=== PATIENT | male | born 1950 | race African-American/Black ===

== ENCOUNTER 2018-05-11 12:57 | Inpatient (IN) | payer OTHER, MEDICARE ==
[~2018-05-11] VITALS: Ht 182.9 cm; Wt 95.3 kg
[2018-05-11 13:51] LABS: HEMATOCRIT 35.7 % (38.0-50.0); HEMOGLOBIN 12.6 G/DL (12.5-16.6); MCH 31.7 PG (29.0-34.0); MCHC 35.3 G/DL (30.0-36.0); MCV 89.7 FL (86-99); PLATELET COUNT 173 K/uL (156-360); RBC DIS.WIDTH-CV 12.5 % (11.8-14.6); RBC DIS.WIDTH-SD 41.3 % (39-53); RED BLOOD COUNT 3.98 M/uL (4.00-5.50); WHITE BLOOD COUNT 9.9 K/uL (4.1-10.2)
[2018-05-11 14:00] LABS: CHLORIDE 101 mEq/L (99-109); POTASSIUM 4.4 mEq/L (3.7-5.4); SODIUM 137 mEq/L (136-147)
[2018-05-11 14:02] LABS: GLUCOSE 169 mg/dL (70-99)
[2018-05-11 14:06] LABS: CREATININE 2.5 mg/dL (0.6-1.3); GFR ESTIMATE (CALCULATED) 33 mL/min/ (58.99-99999); UREA NITROGEN (BUN) 25 mg/dL (9-23)
[2018-05-11 14:12] LABS: TROP-I INTERPRETATION NEGATIVE; TROPONIN-I 0.01 ng/mL (0.0-0.30)
[2018-05-11 14:29] LABS: TROP-I INTERPRETATION NEGATIVE; TROPONIN-I 0.02 ng/mL (0.0-0.30)
[2018-05-11 15:08] LABS: INTER. NORMALIZED RATIO 1.6
[2018-05-11 15:10] LABS: PTT 33.2 SEC (25-37)
[2018-05-11 16:19] LABS: APPEARANCE CLEAR ((CLEAR)); BILIRUBIN NEGATIVE; BLOOD NEGATIVE; COLOR YELLOW ((YELLOW)); GLUCOSE (STRIP) 50; KETONES NEGATIVE; LEUKOCYTES NEGATIVE; NITRITE NEGATIVE; PROTEIN (STRIP) >=500; UROBILINOGEN 0.2 MG/DL (0.2-1.0)
[2018-05-11 16:31] LABS: BACTERIA NONE SEEN /HPF; EPITHELIAL CELLS NONE SEEN /HPF; MUCUS TRACE /LPF; RED BLOOD CELLS 0-5 /HPF (0-5); UCUL ADDED? NO; WHITE BLOOD CELLS 0-5 /HPF (0-5)
[2018-05-11] MEDS ORDERED: SIMVASTATIN10 MG PO (17:17)
[2018-05-11] MEDS ORDERED: FERROUS SULFAT325 MG PO (17:19)
[2018-05-11] MEDS ORDERED: LOPRESSOR50 MG PO ×2 (17:20→20:13)
[2018-05-11] MEDS ORDERED: AMLODIPINE BESYL5 MG PO (17:21)
[2018-05-11] MEDS ORDERED: FUROSEMIDE40 MG PO (17:21)
[2018-05-11] MEDS ORDERED: IMDUR60 MG PO (17:22)
[2018-05-11] MEDS ORDERED: LISINOPRIL40 MG PO (17:24)
[2018-05-11] MEDS ORDERED: TRADJENTA5 MG PO (17:24)
[2018-05-11] MEDS ORDERED: OMEPRAZOLE40 M1 PO (17:24)
[2018-05-11] MEDS ORDERED: LANTUS 3 M100 UNITS1 SC (17:25)
[2018-05-11] MEDS ORDERED: LOPRESSOR100 M1 PO (17:26)
[2018-05-11] MEDS ORDERED: APRESOLINE100 MG PO (17:27)
[2018-05-11 18:03] LABS: HDL CHOLESTEROL 27 MG/DL (Desirable>=40); LDL CHOLESTEROL 89 mg/dL (Desirable<100); NON-HDL CHOLESTEROL 133 mg/dL (Desirable<160); TOTAL CHOLESTEROL 160 mg/dL (Desirable<200); TRIGLYCERIDES 220 MG/DL (Normal: <150)
[2018-05-11 19:46] VITALS: BP 181/106
[2018-05-11 19:56] VITALS: BP 181/106
[2018-05-11] MEDS ORDERED: APRESOLINE25 MG PO (20:08)
[2018-05-11] MEDS ORDERED: CALCITRIOL0.25 MCG PO (20:09)
[2018-05-11 20:36] LABS: TROP-I INTERPRETATION NEGATIVE; TROPONIN-I < 0.01 ng/mL (0.0-0.30)
[2018-05-11 21:35] VITALS: BP 168/88
[2018-05-12] VITALS (8 sets, daily range): BP systolic 153–204; BP diastolic 85–105
[2018-05-12 02:16] LABS: HEMATOCRIT 36.2 % (38.0-50.0); HEMOGLOBIN 12.5 G/DL (12.5-16.6); MCH 30.8 PG (29.0-34.0); MCHC 34.5 G/DL (30.0-36.0); MCV 89.2 FL (86-99); PLATELET COUNT 151 K/uL (156-360); RBC DIS.WIDTH-CV 12.4 % (11.8-14.6); RBC DIS.WIDTH-SD 40.6 % (39-53); RED BLOOD COUNT 4.06 M/uL (4.00-5.50); WHITE BLOOD COUNT 7.5 K/uL (4.1-10.2)
[2018-05-12 02:25] LABS: CHLORIDE 102 mEq/L (99-109); POTASSIUM 3.9 mEq/L (3.7-5.4); SODIUM 138 mEq/L (136-147)
[2018-05-12 02:26] LABS: GLUCOSE 129 mg/dL (70-99)
[2018-05-12 02:30] LABS: CREATININE 2.1 mg/dL (0.6-1.3); GFR ESTIMATE (CALCULATED) 41 mL/min/ (58.99-99999)
[2018-05-12 02:31] LABS: UREA NITROGEN (BUN) 21 mg/dL (9-23)
[2018-05-12 02:38] LABS: TROP-I INTERPRETATION NEGATIVE; TROPONIN-I 0.02 ng/mL (0.0-0.30)
[2018-05-12 11:23] LABS: HEMOGLOBIN A1c (GLYCOHEMOGLOB) 6.3 % (Below 5.7)
[2018-05-13 00:01] VITALS: BP 141/96
[2018-05-13 03:46] VITALS: BP 141/87
[2018-05-13 05:56] LABS: HEMATOCRIT 33.7 % (38.0-50.0); HEMOGLOBIN 11.4 G/DL (12.5-16.6); MCH 30.3 PG (29.0-34.0); MCHC 33.8 G/DL (30.0-36.0); MCV 89.6 FL (86-99); PLATELET COUNT 171 K/uL (156-360); RBC DIS.WIDTH-CV 12.6 % (11.8-14.6); RBC DIS.WIDTH-SD 41.1 % (39-53); RED BLOOD COUNT 3.76 M/uL (4.00-5.50); WHITE BLOOD COUNT 8.2 K/uL (4.1-10.2)
[2018-05-13 06:34] LABS: CHLORIDE 102 MEQ/L (99-109); CREATININE 2.5 MG/DL (0.6-1.3); GFR ESTIMATE (CALCULATED) 33 mL/min/ (58.99-99999); SODIUM 141 MEQ/L (136-147); UREA NITROGEN (BUN) 23 mg/dL (9-23)
[2018-05-13 06:35] LABS: GLUCOSE 56 mg/dL (70-99)
[2018-05-13 07:38] VITALS: BP 146/85
[2018-05-13] MEDS ORDERED: ELIQUIS5 MG PO (10:13)
[2018-05-13] MEDS ORDERED: ATORVASTATIN CA80 MG PO (10:14)
[2018-05-13] MEDS ORDERED: METOPROLOL TAR100 MG PO (10:15)
[2018-05-13] MEDS ORDERED: AMOX TR-K CLV1 EAC4 PO (10:21)
[2018-05-13] MEDS ORDERED: FLONASE16 G1 BOTH NARES (11:21)
[2018-05-13 11:49] VITALS: BP 146/86
== END 2018-05-13 12:04 | disposition home or self-care (01) | DRG 310 ==
LOC: EME 12:57 → 4EAST 17:15 → EDOF 17:15 → ENRESERV 17:17 → 4EAST 19:26 → ENRESERV 05-12 15:52 → 5SOUTH 05-12 17:57
PROVIDERS: Hospitalist; Internal Medicine; Nurse Practitioner Family
DX: I48.91 Unspecified atrial fibrillation (principal); Z79.82 Long term (current) use of aspirin; Z79.899 Other long term (current) drug therapy; R07.9 Chest pain, unspecified; I25.2 Old myocardial infarction; E11.22 Type 2 diabetes mellitus with diabetic chronic kidney disease; E11.51 Type 2 diabetes mellitus with diabetic peripheral angiopathy without gangrene; E78.5 Hyperlipidemia, unspecified; Z87.891 Personal history of nicotine dependence; R04.0 Epistaxis; Z68.28 Body mass index [BMI] 28.0-28.9, adult; I12.9 Hypertensive chronic kidney disease with stage 1 through stage 4 chronic kidney disease, or unspecified chronic kidney disease; R20.0 Anesthesia of skin; R29.810 Facial weakness; N18.3 Chronic kidney disease, stage 3 (moderate); Z79.4 Long term (current) use of insulin; J01.90 Acute sinusitis, unspecified; I25.10 Atherosclerotic heart disease of native coronary artery without angina pectoris; G43.109 Migraine with aura, not intractable, without status migrainosus; Z86.73 Personal history of transient ischemic attack (TIA), and cerebral infarction without residual deficits; J32.0 Chronic maxillary sinusitis
CPT/HCPCS: 70450; 70551; 71046; 80048; 80061; 81003; 82948; 83036; 83880; 84484; 85027; 85610; 85730; 93005; 93880; 99281; 99285; J1644; J1815; J2405; J3010; J7030

== ENCOUNTER 2018-07-20 01:35 | Emergency (ER) | payer OTHER, MEDICARE ==
[~2018-07-20] VITALS: Ht 167.6 cm; Wt 92.1 kg
[~2018-07-20 01:35] MED LIST: AMLODIPINE BESYL5 MG PO; AMOX TR-K CLV1 EAC4 PO; APRESOLINE100 MG PO; APRESOLINE25 MG PO; ATORVASTATIN CA80 MG PO; CALCITRIOL0.25 MCG PO; ELIQUIS5 MG PO; FERROUS SULFAT325 MG PO; FLONASE16 G1 BOTH NARES; FUROSEMIDE40 MG PO; IMDUR60 MG PO; LANTUS 3 M100 UNITS1 SC; LISINOPRIL40 MG PO; LOPRESSOR100 M1 PO; LOPRESSOR50 MG PO; METOPROLOL TAR100 MG PO; OMEPRAZOLE40 M1 PO; SIMVASTATIN10 MG PO; TRADJENTA5 MG PO
[2018-07-20 02:47] LABS: APPEARANCE CLEAR ((CLEAR)); BILIRUBIN NEGATIVE; BLOOD NEGATIVE; COLOR STRAW ((YELLOW)); GLUCOSE (STRIP) NEGATIVE; KETONES NEGATIVE; LEUKOCYTES NEGATIVE; NITRITE NEGATIVE; PROTEIN (STRIP) 100; SPECIFIC GRAVITY 1.009 (1.000-1.030); UROBILINOGEN 0.2 MG/DL (0.2-1.0)
[2018-07-20 02:53] LABS: BASOPHIL (%) 0.7 % (0-1); BASOPHIL COUNT 0.1 K/uL (0-0.1); EOSINOPHIL (%) 2.9 % (0-5); EOSINOPHIL COUNT 0.3 K/uL (0-0.3); HEMATOCRIT 35.8 % (38.0-50.0); HEMOGLOBIN 12.4 G/DL (12.5-16.6); IMMATURE GRANULOCYTE (%) 0.4 % (0.0-0.7); LYMPHOCYTE (%) 21.6 % (15-42); MCH 30.7 PG (29.0-34.0); MCHC 34.6 G/DL (30.0-36.0); MCV 88.6 FL (86-99); MONOCYTE (%) 9.3 % (3-12); MONOCYTE COUNT 0.9 K/uL (0-0.8); NEUTROPHIL (%) 65.1 % (45-76); NEUTROPHIL COUNT 6.1 K/uL (1.8-6.4); PLATELET COUNT 143 K/uL (156-360); RBC DIS.WIDTH-CV 14.4 % (11.8-14.6); RBC DIS.WIDTH-SD 45.9 % (39-53); RED BLOOD COUNT 4.04 M/uL (4.00-5.50); WHITE BLOOD COUNT 9.4 K/uL (4.1-10.2)
[2018-07-20 02:59] LABS: BACTERIA NONE SEEN /HPF; EPITHELIAL CELLS NONE SEEN /HPF; HYALINE CASTS 0-5 /LPF; MUCUS NONE SEEN /LPF; RED BLOOD CELLS 0-5 /HPF (0-5); UCUL ADDED? NO; WHITE BLOOD CELLS 0-5 /HPF (0-5)
[2018-07-20 02:59] LABS: INTER. NORMALIZED RATIO 1.5
[2018-07-20 03:02] LABS: PTT 33.2 SEC (25-37)
[2018-07-20 03:18] LABS: ALBUMIN 3.8 g/dL (3.2-4.8)
[2018-07-20 03:19] LABS: CHLORIDE 104 mEq/L (99-109); POTASSIUM 3.9 mEq/L (3.7-5.4); SODIUM 139 mEq/L (136-147)
[2018-07-20 03:21] LABS: GLUCOSE 98 mg/dL (70-99); TOTAL PROTEIN 6.8 g/dL (6.4-8.3)
[2018-07-20 03:23] LABS: TOTAL BILIRUBIN 0.7 mg/dL (0.0-1.0)
[2018-07-20 03:24] LABS: ALKALINE PHOSPHATASE 69 IU/L (3-129)
[2018-07-20 03:25] LABS: CREATININE 2.7 mg/dL (0.6-1.3); GFR ESTIMATE (CALCULATED) 30 mL/min/ (58.99-99999)
[2018-07-20 03:26] LABS: AST (GOT) 14 IU/L (2-34); UREA NITROGEN (BUN) 25 mg/dL (9-23)
[2018-07-20 03:28] LABS: ALT (GPT) 14 IU/L (3-49)
[2018-07-20] MEDS ORDERED: LIDOCAINE700 MG TP (06:20)
[2018-07-20] MEDS ORDERED: FLEXERIL10 MG PO (06:20)
[2018-07-20] MEDS ORDERED: NORCO 5/3251 TABLET PO (06:20)
[2018-07-20 06:42] VITALS: BP 125/83
== END 2018-07-20 06:43 | disposition home or self-care (01) ==
LOC: EME 01:35
PROVIDERS: Emergency Medicine
DX: M54.9 Dorsalgia, unspecified (principal); M62.830 Muscle spasm of back; K40.90 Unilateral inguinal hernia, without obstruction or gangrene, not specified as recurrent; I72.3 Aneurysm of iliac artery; I71.4 Abdominal aortic aneurysm, without rupture; E11.9 Type 2 diabetes mellitus without complications; I10 Essential (primary) hypertension; I25.2 Old myocardial infarction; Z87.891 Personal history of nicotine dependence; Z79.4 Long term (current) use of insulin
CPT/HCPCS: 74176; 80053; 81003; 85025; 85610; 85730; 99281; 99284; J2270